=== PATIENT | female | born 1985 | race African-American/Black ===

== ENCOUNTER 2019-05-20 14:28 | Day surgery (SDC) | payer OTHER ==
[2019-05-20 14:47] VITALS: BP 114/75; TEMP 100
[2019-05-20 14:48] VITALS: BMI 35.4
--- NOTE | 2019-05-20 19:16 | PRG ---
DATE OF SERVICE: 05/20/2019 PRIMARY OB: José Miguel Fitzpatrick MD. CHIEF COMPLAINT: Vaginal discharge. HISTORY OF PRESENT ILLNESS: The patient is a 33-year-old female with an intrauterine at 37 weeks and 6 days, presenting to Labor and Delivery with complaints of a sac-like discharge that she noticed paining when she went go to the bathroom. She reports that looked like a sac bulging from her vagina that was brown. The patient denies any other discharge. Denies any other leaking. Denies any bleeding. Denies uterine contractions. She denies any other complications. She denies any fever, fall, headache, cough, chest pain, shortness of breath, nausea, vomiting, diarrhea, constipation, hip problems, knee problems, muscle weakness. She denies any new rashes, vaginal bleeding, urinary urgency or frequency. PAST MEDICAL HISTORY: Negative. PAST SURGICAL HISTORY: Negative. ALLERGIES: NO KNOWN DRUG ALLERGIES. SOCIAL HISTORY: Denies drug, alcohol, or tobacco use. OB HISTORY: This is her 5th . She has had four vaginal deliveries. Blood type is B positive. Antibody screen is negative. VDRL nonreactive. Hepatitis B surface antigen nonreactive. HIV nonreactive. She is rubella immune. Diabetes screen is 73. Third trimester HIV is nonreactive. Third trimester VDRL nonreactive. She is GBS negative. PHYSICAL EXAMINATION: GENERAL: She appears to be in no acute distress. She is alert, oriented, cooperative, pleasant to interact with. HEENT: Head is normocephalic and atraumatic. LUNGS: Clear to auscultation bilaterally. HEART: Regular rate and rhythm. ABDOMEN: Gravid, soft, nontender. EXTREMITIES: Nontender, nonedematous. CERVICAL: Perineum is dry and no visible discharge. Vagina is moist, but there is no leakage of fluid. No palpable discharge. Cervix is very posterior with head presenting, it is about 3 cm, 60% effaced. There is no blood on the glove. No discharge on the glove was of significance. heart tracing shows the fetus with a baseline in the 140s with moderate long-term variability, positive 15 x 15 accelerations, no decelerations, no contractions seen on the monitor. ASSESSMENT AND PLAN: The patient is a G5, P4 female with an intrauterine at 37 weeks and 6 days, here for a discharge on description it sounds more like a mucousy discharge that there is no evidence of rupture of membranes and no bleeding. The patient has been given reassurance. Fetus has a category 1 tracing and reactive NST. The patient is being discharged to home. She is scheduled for an induction of labor tomorrow morning, which is scheduled for 5:30. The patient has been sent home with term labor precautions. Job ID: [id number]
[2019-05-20] MEDS ORDERED: Ondansetron PF 4 MG/2 ML Vial IVP PRN (23:25)
[2019-05-20] MEDS ORDERED: Promethazine HCl 25 MG/ML VIAL IM PRN (23:25)
[2019-05-20] MEDS ORDERED: hydrALAZINE 20 MG/ML VIAL SLOW IVP PRN (23:25)
[2019-05-20] MEDS ORDERED: Acetaminophen 500 MG TAB PO PRN (23:25)
[2019-05-20] MEDS ORDERED: Lidocaine 1% (PF) 30 ML VIAL SC PRN (23:25)
[2019-05-20] MEDS ORDERED: Acetaminophen/Codeine 30-300mg Tablet PO PRN ×2 (23:25)
[2019-05-20] MEDS ORDERED: Ibuprofen 800 MG TAB PO PRN (23:25)
[2019-05-20] MEDS ORDERED: Butorphanol Tartrate 1 MG/ML VIAL SLOW IVP PRN (23:25)
[2019-05-20] MEDS ORDERED: NS / Oxytocin 40 units/1000ml 1,000 ML IV PRN (23:25)
[2019-05-20] MEDS ORDERED: Misoprostol 200 MCG TAB PR PRN (23:25)
[2019-05-20] MEDS ORDERED: Carboprost 250 MCG/ML AMP IM PRN (23:25)
[2019-05-20] MEDS ORDERED: Diphenoxylate HCl/Atropine Tablet PO PRN ×2 (23:25)
[2019-05-20] MEDS ORDERED: Docusate 100 MG CAP PO PRN (23:25)
[2019-05-20] MEDS ORDERED: Lactated Ringer's 1,000 ML IV SCH (23:45)
[2019-05-20] MEDS ORDERED: NS w/ Oxytocin 10 units 500 ML IV SCH ×2 (23:59)
== END 2019-05-20 15:44 | disposition home or self-care (01) ==
LOC: L&D/OP 14:28
PROVIDERS: ATTEND Obstetrics & Gynecology
DX: O99.89 Other specified diseases and conditions complicating pregnancy, childbirth and the puerperium (principal); N89.8 Other specified noninflammatory disorders of vagina; Z3A.37 37 weeks gestation of pregnancy
CPT/HCPCS: 99283

== ENCOUNTER 2019-05-21 05:41 | Inpatient (IN) | payer OTHER ==
[2019-05-21] MEDS ORDERED: Promethazine HCl 25 MG/ML VIAL IM PRN ×3 (06:00→22:56)
[2019-05-21] MEDS ORDERED: Butorphanol Tartrate 1 MG/ML VIAL SLOW IVP PRN (06:00)
[2019-05-21] MEDS ORDERED: Docusate 100 MG CAP PO PRN (06:00)
[2019-05-21] MEDS ORDERED: Ondansetron PF 4 MG/2 ML Vial IVP PRN ×3 (06:00→22:56)
[2019-05-21] MEDS ORDERED: Misoprostol 200 MCG TAB PR PRN (06:00)
[2019-05-21] MEDS ORDERED: NS w/ Oxytocin 10 units 500 ML IV SCH ×2 (06:00)
[2019-05-21] MEDS ORDERED: Diphenoxylate HCl/Atropine Tablet PO PRN ×2 (06:00)
[2019-05-21] MEDS ORDERED: NS / Oxytocin 40 units/1000ml 1,000 ML IV PRN (06:00)
[2019-05-21] MEDS ORDERED: Acetaminophen/Codeine 30-300mg Tablet PO PRN ×4 (06:00→22:56)
[2019-05-21] MEDS ORDERED: Carboprost 250 MCG/ML AMP IM PRN (06:00)
[2019-05-21] MEDS ORDERED: Ibuprofen 800 MG TAB PO PRN (06:00)
[2019-05-21] MEDS ORDERED: Lidocaine 1% (PF) 30 ML VIAL SC PRN (06:00)
[2019-05-21] MEDS ORDERED: Acetaminophen 500 MG TAB PO PRN (06:00)
[2019-05-21] MEDS ORDERED: hydrALAZINE 20 MG/ML VIAL SLOW IVP PRN ×2 (06:00→22:56)
[2019-05-21 06:04] VITALS: BMI 35.4
[2019-05-21 06:29] LABS: Hemoglobin 9.1 g/dL (12.0-16.0); Mean Corpuscular HGB CONC 32.2 g/dL (32.0-36.0); Mean Corpuscular Hemoglobin 23.8 pg (27.0-31.0); Mean Corpuscular Volume 74.2 fL (78.0-98.0); Mean Platelet Volume 9.7 fL (7.4-10.4); Platelet Count 210 thou/uL (130-400); RBC Distribution Width 16.2 % (11.5-14.5); White Blood Cell (WBC) Count 8.6 thou/uL (4.8-10.8)
[2019-05-21 07:14] LABS: Hep B Surf Ag Non-Reactive S/CO (NonReactive); Syphilis Antibody Nonreactive (Nonreactive); Syphilis Antibody Index 0.02 S/CO (<1.00 Non-Reactive)
[2019-05-21] MEDS ORDERED: Bupivacaine 0.25% HCL 30 ML VIAL ONE (08:53)
[2019-05-21] MEDS ORDERED: Fentanyl 4 mcg/Bup 0.1% Cadd 100 ML ONE ×2 (09:08→16:06)
[2019-05-21] MEDS ORDERED: Lactated Ringer's 500 ML IV PRN (09:49)
[2019-05-21] MEDS ORDERED: diphenhydrAMINE 50 MG/ML VIAL IVP PRN (09:49)
[2019-05-21] MEDS ORDERED: EPHEDRINE 25 MG/5 ML SYRINGE SLOW IVP PRN (09:49)
[2019-05-21] MEDS ORDERED: Naloxone HCl 0.4 mg/ml Vial IVP PRN ×2 (09:49)
[2019-05-21] MEDS ORDERED: Acetaminophen 325 MG TAB PO PRN (09:49)
[2019-05-21] MEDS: Lactated Ringer's 1,000 ML IV SCH ×2 (09:59→18:05)
[2019-05-21] MEDS ORDERED: Fentanyl 4 mcg/Bupivacaine 0.1% Cassette 100 ML EPIDURAL SCH (10:00)
[2019-05-21] MEDS ORDERED: Communication Order-Pharmacy FS SCH (10:00)
--- NOTE | 2019-05-21 14:33 | PDOC.LDHP ---
Labor and Delivery H&P Chief complaint: contractions, scheduled induction HPI: 33 y/o at 38 and 0/7 weeks, with CHTN presents for term medical induction of labor. Current gestational age (weeks): 38 Due date: 06/04/19 Grav: 5 Para: 4 Current complications: hypertension Abnormal US findings: No Current medications: pre-nhan vitamins Allergies/Adverse Reactions: Allergies Allergy/AdvReac Type Severity Reaction Status Date / Time No Known Allergies Allergy Verified 05/21/19 06:02 Social history: none - Physical Exam Vital signs reviewed and normal: yes General: NAD, resting Heart: other Lungs: CTAB Abdomen: gravid Extremeties: no edema FHT: category 1 - Assessment L&D Assessment: medically indicated induction - Plan Plan: admit to L&D, cervical ripening
[2019-05-21] MEDS ORDERED: Misoprostol 200 MCG TAB ONE (20:27)
[2019-05-21] MEDS ORDERED: Carboprost 250 MCG/ML AMP ONE (20:27)
[2019-05-21] MEDS ORDERED: Lidocaine 1% (PF) 30 ML VIAL ONE (20:27)
[2019-05-21] MEDS ORDERED: NS / Oxytocin 40 units/1000ml 1,000 ML ONE (20:27)
[2019-05-21] MEDS ORDERED: Benzocaine-Menthol 82.5 ML CAN TOP PRN (22:56)
[2019-05-21] MEDS ORDERED: NS / Oxytocin 40 units/1000ml 1,000 ML IV SCH (22:56)
[2019-05-21] MEDS ORDERED: Bisacodyl 10 MG SUPP PR PRN (22:56)
[2019-05-21] MEDS ORDERED: Lanolin Ointment 7 GM TUBE TOP PRN (22:56)
[2019-05-21] MEDS ORDERED: Milk Of Magnesia 30 ML UDCUP PO PRN (22:56)
[2019-05-21] MEDS ORDERED: diphenhydrAMINE 25 MG CAP PO PRN (22:56)
[2019-05-21] MEDS ORDERED: Zolpidem Tartrate 5 MG TAB PO PRN (22:56)
[2019-05-21] MEDS ORDERED: Preparation H Ointment 28 GM TUBE PR PRN (22:56)
[2019-05-21] MEDS ORDERED: Ibuprofen 800 MG TAB PO SCH (23:15)
[2019-05-22] MEDS: Ibuprofen 800 MG TAB PO SCH ×3 (02:12→21:54)
[2019-05-22] MEDS: Lactated Ringer's 1,000 ML IV SCH (02:35)
[2019-05-22 06:48] LABS: Hemoglobin 9.1 g/dL (12.0-16.0); Mean Corpuscular HGB CONC 31.5 g/dL (32.0-36.0); Mean Corpuscular Hemoglobin 23.7 pg (27.0-31.0); Mean Corpuscular Volume 75.2 fL (78.0-98.0); Mean Platelet Volume 9.1 fL (7.4-10.4); Platelet Count 169 thou/uL (130-400); RBC Distribution Width 16.5 % (11.5-14.5); Red Blood Cell (RBC) Count 3.83 mill/uL (4.20-5.40); White Blood Cell (WBC) Count 11.1 thou/uL (4.8-10.8)
[2019-05-22] MEDS ORDERED: Measles/Mumps/Rubella 10 MCG/0.5 ML VIAL SC ONE (09:00)
[2019-05-22] MEDS ORDERED: Varicella virus, LIVE 0.5 ML VIAL SC ONE (09:00)
[2019-05-22] MEDS ORDERED: Adacel (T-DAP) 0.5 ML SYRINGE IM ONE (09:00)
[2019-05-22] MEDS: Prenatal Vitamin 1 TAB PO SCH (11:24)
[2019-05-22] MEDS: Docusate Calcium (SURFAK) 240 MG CAP PO SCH ×2 (11:24→21:53)
--- NOTE | 2019-05-22 13:28 | PDOC.PP ---
Post Progress Note Post Day #: 1 PO intake tolerated: yes Flatus: yes Ambulation: yes Vital Signs (12 hours) Temp Pulse Resp BP Pulse Ox 05/22/19 10:58 98.5 F 80 20 130/80 05/22/19 08:05 98.7 F 68 20 143/86 H 100 05/22/19 03:50 98.7 F 63 16 115/69 Weight Weight 240 lb - Physical Examination General: NAD Cardiovascular: no m/r/g, RRR Respiratory: clear to auscultation bilaterally, non-labored breathing Abdominal: + bowel sounds, lochia, no distention Extremities: negative homans (B) Neurological: no gross focal deficits Psychiatric: A&Ox3, normal affect (DC home after 24 hrs once patient is ready.) Result Diagrams: 05/22/19 06:31 Additional Labs: Post Labs Blood Type B POSITIVE 05/21/19 06:46 Hep Bs Antigen Non-Reactive S/CO (NonReactive) 05/21/19 06:16
--- NOTE | 2019-05-22 14:22 | DN ---
DATE OF PROCEDURE: 05/21/2019 DELIVERY DATE AND TIME: 05/21/2019 at 2050 central daylight savings time. PREOPERATIVE DIAGNOSIS: Intrauterine at 38 weeks and 0 days with a history of chronic hypertension. POSTOPERATIVE DIAGNOSIS: Intrauterine at 38 weeks and 0 days with a history of chronic hypertension. PROCEDURE PERFORMED: Spontaneous vaginal delivery over a small first-degree laceration of the perineum. FINDINGS: Viable male , weighing 2785 g or 6 pounds 2 ounces. Apgars 9 and 9. QUANTITATIVE BLOOD LOSS: 165 mL. COMPLICATIONS: None. PROCEDURE IN DETAIL: The patient presented to [facility] where she was admitted to the labor and delivery service. The patient underwent a normal and uneventful labor with normal cervical dilatation until she was found to be completely dilated. She was then allowed to push and was able to bring the baby down and delivered the baby in a vertex presentation without difficulties. Once the head delivered in occiput anterior position, the shoulders followed spontaneously along with the rest of the baby's body. Once out the baby's mouth and nose were bulb suctioned. The cord was clamped and cut and baby was handed to waiting attendants. Cord blood was collected. Gentle fundal massage was performed and the placenta delivered intact without problems. Hemostasis was assured. Quantitative blood loss was calculated. Inspection of the cervix, vaginal vault, and perineum did not reveal any lacerations needing suturing. Once again, hemostasis was within normal limits and the patient was allowed to recover in the labor and delivery room. Baby went to nursery. Job ID: [id number]
[2019-05-22] MEDS: Ferrous Sulfate 325 MG TAB PO SCH ×2 (16:15→17:55)
[2019-05-23] MEDS: Ibuprofen 800 MG TAB PO SCH (06:30)
[2019-05-23 07:46] VITALS: BP 111/79; TEMP 98.3
[2019-05-23] MEDS: Docusate Calcium (SURFAK) 240 MG CAP PO SCH (08:58)
[2019-05-23] MEDS: Ferrous Sulfate 325 MG TAB PO SCH (08:58)
[2019-05-23] MEDS: Prenatal Vitamin 1 TAB PO SCH (08:58)
== END 2019-05-23 13:31 | disposition home or self-care (01) | DRG 807 ==
LOC: L&D 05:41 → 3SE 23:50
PROVIDERS: ADMIT Obstetrics & Gynecology; ATTEND Obstetrics & Gynecology
PROC: 10E0XZZ Delivery of Products of Conception, External Approach (ICD-10-PCS; principal; 2019-05-21)
DX: O10.92 Unspecified pre-existing hypertension complicating childbirth (principal); Z37.0 Single live birth; Z3A.38 38 weeks gestation of pregnancy; O70.0 First degree perineal laceration during delivery
CPT/HCPCS: 36415; 51702; 85027; 86780; 86850; 86900; 86901; 87340; 99283; J2001; J2590; J3490; S0020